=== PATIENT | male | born 1965 | race Caucasian/White ===

== ENCOUNTER 2018-02-28 11:01 | Emergency (ER) | payer OTHER ==
[2018-02-28] MEDS: HYDROCODONE/APAP (5/325) TAB PO (11:55)
== END 2018-02-28 13:30 | disposition home or self-care (01) ==
LOC: FTE 11:01
DX: M47.9 Spondylosis, unspecified (principal); M79.601 Pain in right arm; M79.602 Pain in left arm; R20.2 Paresthesia of skin; E03.9 Hypothyroidism, unspecified; F17.210 Nicotine dependence, cigarettes, uncomplicated
CPT/HCPCS: 70450; 72125; 93005; 99285-25

== ENCOUNTER → 2018-03-26 | Emergency (ER) | payer OTHER ==
[2018-03-26] MEDS: KETOROLAC 60 MG INJ IM (04:00)
== END | disposition home or self-care (01) ==
LOC: FTE 01:05
DX: S61.203A Unspecified open wound of left middle finger without damage to nail, initial encounter (principal); L08.89 Other specified local infections of the skin and subcutaneous tissue; G89.29 Other chronic pain; M54.2 Cervicalgia; M25.511 Pain in right shoulder; E03.9 Hypothyroidism, unspecified; F17.210 Nicotine dependence, cigarettes, uncomplicated; X58.XXXA Exposure to other specified factors, initial encounter; Y92.9 Unspecified place or not applicable
CPT/HCPCS: 96372; 99284-25

== ENCOUNTER 2018-04-29 18:35 | Emergency (ER) | payer OTHER ==
[2018-04-29] MEDS: ONDANSETRON (ODT) 4 MG TAB ODT (20:17)
[2018-04-29] MEDS: HYDROCODONE/APAP (10/325) TAB PO (20:17)
[2018-04-29] MEDS: DIPHTH/TET/ACEL PERTUSS (ADULT) 0.5 ML VIAL IM* (21:01)
== END 2018-04-29 21:20 | disposition home or self-care (01) ==
LOC: E/R 18:35
DX: S62.631A Displaced fracture of distal phalanx of left index finger, initial encounter for closed fracture (principal); F17.210 Nicotine dependence, cigarettes, uncomplicated; E03.9 Hypothyroidism, unspecified; R40.2142 Coma scale, eyes open, spontaneous, at arrival to emergency department; R40.2252 Coma scale, best verbal response, oriented, at arrival to emergency department; R40.2362 Coma scale, best motor response, obeys commands, at arrival to emergency department; W27.0XXA Contact with workbench tool, initial encounter; Y92.89 Other specified places as the place of occurrence of the external cause
CPT/HCPCS: 29130; 73130-LT; 99283-25

== ENCOUNTER 2018-05-08 12:17 | Emergency (ER) | payer OTHER | END 2018-05-08 12:35 | disposition home or self-care (01) | LOC: E/R 12:17 | DX: K13.79 Other lesions of oral mucosa (principal); E03.9 Hypothyroidism, unspecified; F17.210 Nicotine dependence, cigarettes, uncomplicated; Z48.01 Encounter for change or removal of surgical wound dressing | CPT/HCPCS: 99283; Z7502 ==

== ENCOUNTER 2018-05-18 13:19 | Emergency (ER) | payer OTHER ==
[2018-05-18] MEDS: HYDROCODONE/APAP (5/325) TAB PO (15:36)
== END 2018-05-18 16:49 | disposition home or self-care (01) ==
LOC: FTE 13:19
DX: M25.521 Pain in right elbow (principal); F17.210 Nicotine dependence, cigarettes, uncomplicated; E03.9 Hypothyroidism, unspecified
CPT/HCPCS: 73080; 73080-RT; 99283-25

== ENCOUNTER 2019-03-11 19:46 | Emergency (ER) | payer SELFPAY, OTHER | END 2019-03-11 19:54 | disposition left against medical advice (07) | LOC: E/R 19:46 | DX: Z53.21 Procedure and treatment not carried out due to patient leaving prior to being seen by health care provider (principal) ==